=== PATIENT | male | born 1980 | race Caucasian/White ===

== ENCOUNTER 2021-11-09 20:24 | Emergency (ER) | payer OTHER ==
[~2021-11-09] VITALS: Ht 190.5 cm; Wt 93.0 kg
[2021-11-09 20:35] VITALS: BP 170/98
--- NOTE | 2021-11-09 20:38 | NUR ---
to lobby a/w bed ambulatory
[2021-11-09] MEDS ORDERED: NAPR-54 PO (23:00)
[2021-11-09 23:49] VITALS: BP 170/98
--- NOTE | 2021-11-09 23:49 | NUR ---
Patient discharged with v/s stable. Written and verbal after care instructions given and explained. Patient verbalized understanding. Ambulatory with steady gait. All questions addressed prior to discharge. Advised to follow up with PMD.
== END 2021-11-09 23:47 | disposition home or self-care (01) ==
LOC: MED 20:24
DX: S93.601A Unspecified sprain of right foot, initial encounter (principal); X58.XXXA Exposure to other specified factors, initial encounter; Y93.89 Activity, other specified; Y92.89 Other specified places as the place of occurrence of the external cause; Y99.8 Other external cause status
CPT/HCPCS: 29515; 73630; 99283

== ENCOUNTER 2022-06-02 13:03 | Emergency (ER) | payer OTHER ==
[~2022-06-02] VITALS: Ht 188 cm; Wt 99.8 kg
[~2022-06-02 13:03] MED LIST: NAPR-54 PO
[2022-06-02 13:11] VITALS: BP 131/110
--- NOTE | 2022-06-02 13:20 | NUR ---
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 DENIES ANY TRAUMA/INJURY NKA PMH: DENIES
--- NOTE | 2022-06-02 13:26 | NUR ---
ARLINE OCONNELL AT PT SIDE FOR EVAL
--- NOTE | 2022-06-02 13:49 | NUR ---
PT TRANSPORTED TO [facility] VIA
[2022-06-02] MEDS ORDERED: IBUP-2213 PO (14:33)
--- NOTE | 2022-06-02 15:00 | NUR ---
SHORT LEG POSTERIOR APPLIED TO R LOWER LEG + CMS. pt also given crutches. adjusted to arm length and height. pt returned safe demonstration of crutches
[2022-06-02 15:17] VITALS: BP 131/110
== END 2022-06-02 15:16 | disposition home or self-care (01) ==
LOC: MED 13:03
DX: S92.354A Nondisplaced fracture of fifth metatarsal bone, right foot, initial encounter for closed fracture (principal); Z79.899 Other long term (current) drug therapy; W22.8XXA Striking against or struck by other objects, initial encounter; Y93.89 Activity, other specified; Y92.89 Other specified places as the place of occurrence of the external cause; Y99.8 Other external cause status
CPT/HCPCS: 29515; 73630; 99283

== ENCOUNTER 2024-05-10 01:39 | Emergency (ER) | payer SELFPAY ==
[~2024-05-10] VITALS: Ht 188 cm; Wt 94.8 kg
[~2024-05-10 01:39] MED LIST changes: +IBUP-2213 PO; +NAPR-337 PO; -NAPR-54 PO
[2024-05-10 01:44] VITALS: BP 147/99; PULSE 103; RESP 20; TEMP 97.4; O2SAT 97
[2024-05-10] MEDS ORDERED: cefTRIAXone 1,000 MG VIAL ONE (02:22)
[2024-05-10] MEDS ORDERED: CEPH500C16 PO (02:22)
[2024-05-10] MEDS ORDERED: NAPR-337 PO (02:22)
[2024-05-10] MEDS ORDERED: LIDOCAINE MPF 1% 5 ML ONE (02:22)
[2024-05-10] MEDS: cefTRIAXone 1,000 MG in LIDOCAINE MPF 1% 2.1 ML IM ONE (02:26)
[2024-05-10 02:28] VITALS: BP 136/89; PULSE 80; RESP 18; TEMP 97; O2SAT 98
== END 2024-05-10 02:28 | disposition home or self-care (01) ==
LOC: MED 01:39
DX: L02.611 Cutaneous abscess of right foot (principal); Z79.1 Long term (current) use of non-steroidal anti-inflammatories (NSAID); Z79.2 Long term (current) use of antibiotics
CPT/HCPCS: 10060; 96372; 99284; J0696; J2001

== ENCOUNTER 2024-06-07 23:45 | Emergency (ER) | payer MEDICAID ==
[~2024-06-07] VITALS: Ht 180.3 cm; Wt 83.9 kg
[~2024-06-07 23:45] MED LIST changes: +CEPH500C16 PO
[2024-06-07 23:52] VITALS: BP 146/97; PULSE 88; RESP 14; TEMP 98.6; O2SAT 99
[2024-06-08] VITALS: O2SAT 99
[2024-06-08] MEDS ORDERED: NAPR-337 PO (00:45)
[2024-06-08] MEDS: IBUPROFEN 600 MG TAB PO ONE (00:46)
== END 2024-06-08 00:46 | disposition home or self-care (01) ==
LOC: MED 23:45
DX: M79.671 Pain in right foot (principal); R22.41 Localized swelling, mass and lump, right lower limb; R03.0 Elevated blood-pressure reading, without diagnosis of hypertension; Z79.1 Long term (current) use of non-steroidal anti-inflammatories (NSAID); Z79.899 Other long term (current) drug therapy
CPT/HCPCS: 73630; 99284; Q0092